=== PATIENT | male | born 1980 | race Caucasian/White ===

== ENCOUNTER → 2016-09-15 | Outpatient (CLI) | payer OTHER | END | disposition home or self-care (01) | LOC: YCFC.O 08:26 | PROVIDERS: ATTEND Nurse Practitioner Family | DX: E78.2 Mixed hyperlipidemia (principal); R68.82 Decreased libido ==

== ENCOUNTER 2018-10-05 13:10 | Emergency (ER) | payer OTHER ==
--- NOTE | 2018-10-05 13:22 | ED.PDOC ---
History of Present Illness - General Chief Complaint: Problem Time Seen by Provider: 10/05/18 13:20 Source: patient, Vital Signs reviewed, EMS notes reviewed Exam Limitations: no limitations Additional Information: 37 YEAR OLD PRESENTS WITH SEVERE LEFT FLANK PAIN RADIATING TOT HE FRONT OF THE ABDOMEN PATIENT HAS NAUSEA NO FEVER NO CHILLS NO HEMATURIA NO DYSURIA HIS FATHER HAS KIDNEY STONES - History of Present Illness Timing/Duration: 4-6 hours Severity: moderate Improving Factors: nothing Worsening Factors: nothing Associated Symptoms: denies symptoms Allergies/Adverse Reactions: Allergies Aspirin Allergy (Verified 02/24/16 19:59) Ibuprofen Allergy (Verified 02/24/16 19:59) Home Medications: Ambulatory Orders Acetaminophen W/ Codeine [Tylenol W/ CODEINE #3] 1 ea PO Q4H PRN #12 03/17/15 Ciprofloxacin [Cipro] 500 mg PO BID #14 tab 03/17/15 Ondansetron Tab [Zofran Tab] 4 mg PO BID PRN #8 tab 03/17/15 metroNIDAZOLE [Flagyl] 500 mg PO TID #21 tab 03/17/15 Acetamin W/Cod #3 Tab [Tylenol w/CODEINE #3] 1 ea PO Q6HR PRN #40 tab 10/05/18 Tamsulosin HCl [Flomax] 0.4 mg PO DAILY #10 cap 10/05/18 Review of Systems - Review of Systems Constitutional: States: no symptoms reported EENTM: States: no symptoms reported Respiratory: States: no symptoms reported Cardiology: States: no symptoms reported Gastrointestinal/Abdominal: States: no symptoms reported Genitourinary: States: see HPI Musculoskeletal: States: no symptoms reported Skin: States: no symptoms reported Neurological: States: no symptoms reported Endocrine: States: no symptoms reported Hematologic/Lymphatic: States: no symptoms reported Past Medical History (General) - Patient Medical History Hx Seizures: No Hx Stroke: No Hx Dementia: No Hx Asthma: No Hx of COPD: No Hx Cardiac Disorders: No Hx Congestive Heart Failure: No Hx Pacemaker: No Hx Hypertension: Yes Hx Thyroid Disease: No Hx Diabetes: No Hx Gastroesophageal Reflux: No Hx Renal Disease: Yes - kidney stone Hx Cancer: No Hx of HIV: No Hx Hepatitis C: No Hx MRSA: No - Vaccination History Hx Tetanus, Diphtheria Vaccination: Yes Hx Influenza Vaccination: No Hx Pneumococcal Vaccination: No - Social History Hx Tobacco Use: Yes Hx Chewing Tobacco Use: No Hx Alcohol Use: No Hx Substance Use: No Hx Substance Use Treatment: No Hx Depression: No Hx Physical Abuse: No Hx Emotional Abuse: No Hx Suspected Abuse: No - Female History Patient : No Family Medical History - Family History Mother Family History: Unknown Physical Exam - Physical Exam General Appearance: Alert, Comfortable Ears, Nose, Throat: hearing grossly normal, normal ENT inspection, normal pharynx Neck: non-tender, full range of motion, supple Respiratory: chest non-tender, lungs clear, normal breath sounds, no respiratory distress Cardiovascular/Chest: normal peripheral pulses, regular rate, rhythm, no edema, no gallop, no JVD, no murmur Gastrointestinal/Abdominal: normal bowel sounds, non tender, soft, no organomegaly, no pulsatile mass Neurologic: cell tower climber II-XII nml as tested, no motor/sensory deficits, alert, normal mood/affect, oriented x 3 Departure - Departure Clinical Impression: Nephrolithiasis, Renal colic on left side Time of Disposition: 16:06 Disposition: Discharge to Home or Self Care Condition: Good Departure Forms: ED Discharge - Pt. Copy, Patient Portal Self Enrollment Referrals: Jocelyn Parsons NP [Primary Care Provider] - 1-2 Weeks Prescriptions: Acetamin W/Cod #3 Tab [Tylenol w/CODEINE #3] 1 ea PO Q6HR PRN #40 tab PRN Reason: Mild To Moderate Pain Tamsulosin HCl [Flomax] 0.4 mg PO DAILY #10 cap Home Medications: Ambulatory Orders Acetaminophen W/ Codeine [Tylenol W/ CODEINE #3] 1 ea PO Q4H PRN #12 03/17/15 Ciprofloxacin [Cipro] 500 mg PO BID #14 tab 03/17/15 Ondansetron Tab [Zofran Tab] 4 mg PO BID PRN #8 tab 03/17/15 metroNIDAZOLE [Flagyl] 500 mg PO TID #21 tab 03/17/15 Acetamin W/Cod #3 Tab [Tylenol w/CODEINE #3] 1 ea PO Q6HR PRN #40 tab 10/05/18 Tamsulosin HCl [Flomax] 0.4 mg PO DAILY #10 cap 10/05/18 Additional Instructions: PLENTY OF FLUIDS FOLLOW UP WITH YOUR MD
[2018-10-05] MEDS ORDERED: SODIUM CHLORIDE 0.9% 1000ML 1,000 ML IVS ONE (13:23)
[2018-10-05] MEDS ORDERED: fentaNYL CITRATE INJ 50 MCG/ML AMP IV ONE ×2 (13:23→13:58)
[2018-10-05] MEDS ORDERED: PROMETHAZINE HCL INJ 25 MG in SODIUM CHLORIDE 0.9% 50ML 50 ML IVPB ONE (13:25)
[2018-10-05 13:27] VITALS: TEMP 98.9
[2018-10-05] MEDS ORDERED: PROMETHAZINE HCL INJ 25 MG/ML VIAL ONE (13:29)
[2018-10-05] MEDS ORDERED: SODIUM CHLORIDE 0.9% 50ML 50 ML ONE (13:30)
[2018-10-05] MEDS ORDERED: HYDROcodone 10MG/APAP 325MG 1 EA TAB PO ONE ×2 (15:14→15:16)
[2018-10-05 16:21] VITALS: BP 136/85; O2SAT 95
--- NOTE | 2018-10-06 09:14 | CT ---
Study: CT abdomen and pelvis. Indication: LEFT KIDNEY STONE Technique: CT of the abdomen and pelvis obtained without intravenous contrast. This exam was performed according to our departmental dose-optimization program, which includes automated exposure control, adjustment of the mA and/or kV according to patient size and/or use of iterative reconstruction technique. Comparison: March 16, 2015. Findings: Lower chest, liver, gallbladder, pancreas, spleen, adrenal glands, right kidney, bladder, prostate gland demonstrate normal unenhanced CT appearance. 4 mm nonobstructing left renal calculus. 3 mm obstructing stone at the distal left ureter immediately proximal to the UVJ with [id number] left hydronephrosis. Stomach, small bowel, and colon unremarkable. Appendix not visualized. No free fluid. No free air. No pathologically enlarged lymphadenopathy. Atherosclerosis aorta. Degenerative changes of the spine noted. Impression: 3 mm obstructing stone distal left ureter with [id number] left hydronephrosis. Additional findings as above. Electronically signed by: Valente Murillo MD 10/06/2018 9:13 AM CDT
== END 2018-10-05 16:18 | disposition home or self-care (01) ==
LOC: ER 13:10
DX: N13.2 Hydronephrosis with renal and ureteral calculous obstruction (principal); I10 Essential (primary) hypertension; Z87.442 Personal history of urinary calculi; Z87.891 Personal history of nicotine dependence; Z79.899 Other long term (current) drug therapy; Z88.6 Allergy status to analgesic agent
CPT/HCPCS: 36415; 74176; 80053; 85025; A4216; J2550; J3010; J7030